=== PATIENT | female | born 1985 | race Caucasian/White ===

== ENCOUNTER 2017-08-08 10:54 | Day surgery (SDC) | payer OTHER ==
[2017-08-08] MEDS ORDERED: Propofol 10 mg/ml Inj (20 ML) ONE (14:13)
[2017-08-08] MEDS ORDERED: Midazolam 2 MG/2 ML VIAL ONE (14:14)
[2017-08-08] MEDS ORDERED: Bupivacaine HCl 0.25% PF (10 ml) Inj ONE (14:43)
[2017-08-08] MEDS ORDERED: ceFAZolin IV 1 gm in Dextrose 1 GM/50 ML BAG IVPB ONE (14:54)
[2017-08-08] MEDS ORDERED: Neostigmine Methylsulfate 3mg/3ml Syringe IV ONE (14:54)
[2017-08-08] MEDS ORDERED: Succinylcholine Chloride 20 mg/ml Syr (5 ml) IV ONE (14:55)
[2017-08-08] MEDS ORDERED: Rocuronium 10 mg/ml (5 ml) ONE (14:55)
[2017-08-08] MEDS ORDERED: HYDROmorphone 0.5 mg/0.5 ml ISec IVP PRN (15:03)
--- NOTE | 2017-08-08 15:11 | PCM.SURG1 ---
Surgeon's Initial Post Op Note - Surgeon's Notes Surgeon: michelle agustin md Gear Cutting Machine Operator: none Type of Anesthesia: General Endo, Local Pre-Operative Diagnosis: abnormal uterine bleeding. endometrial polyps. vulvar condylomas lessions. Fibroids uterus Operative Findings: multiple endometrial polyps. multiple condylomas on vulvar approx 10 lessions Post-Operative Diagnosis: abnormal uterine bleeding. endometrial polyps. vulvar condylomas lessions. Fibroids uterus Operation Performed: [place] hysteroscopic polypectomy. Excision of extensive vulvar condylomas / simple vulvectomy. hysteroscopy Specimen/Specimens Removed: endometrial polyps. vulvar condylomas Estimated Blood Loss: EBL {In ML}: 10 Blood Products Given: N/A Drains Used: No Drains Post-Op Condition: Good Date of Surgery/Procedure: 08/08/17 Time of Surgery/Procedure: 15:12
[2017-08-08] MEDS ORDERED: Sodium Chloride 0.9% 1,000 ML IV SCH (15:15)
--- NOTE | 2017-08-08 15:15 | PCM.OP ---
Operative Report - Operative Report Date of Surgery/Procedure: 08/08/17 Time of Surgery/Procedure: 15:12 Surgeon: michelle Paz md [employer] Kiln: none Anesthesia/Sedation: general with ET tube Pre-Operative Diagnosis: Abnormal uterine bleeding. endometrial polyps. Fibroids. Vulvar condylomas Post-Operative Diagnosis: Abnormal uterine bleeding. endometrial polyps. Fibroids. Vulvar condylomas Indication for Surgery: Abnormal uterine bleeding. worsening expending condylomas on vulvar multiple lessions noted approx 10 Operative Findings: multiple endometrial polpys. exntesive condylomas on vulva midline above clitoris Procedure/Operation Description: Myosure polypectomy hysterescopy. Simple vulvectomy / Excision of vulvar condylomas (extensive). . Detail operative report. This is a 31 year-old female with abnormal uterine bleeding, endometrial polyps as well as uterine fibroids as well as extensive vulvar condyloma lesions. Proper consent was obtained. Patient was taken to the operating room where general anesthesia was obtained without difficulty. She was prepped and draped appropriately for hysteroscopic removal of endometrial polyps and simple vulvectomy. Patient was placed in dorsal lithotomy position, legs were placed in adjustable Suraj stirrups, and careful attention was placed to avoid hyperflexion or hyperextension of the lower extremities. Schultz catheter was inserted under sterile condition. The cervix was grasped with Tenaculumcervix was dilated to allow a hysteroscope to be advanced into the endometrial cavity. Hysteroscope was inserted and multiple polypoid structures were noted near the fundus. The Myosure device was inserted and in a usual fashion the polyps were excised in a meticulous and careful way with excellent hemostasis. The polypoid tissue sent to pathology. At this time to hysteroscope was removed and endometrial distention was reduced. Fluid utilized was normal saline, fluid deficit was measured at 100 mL. Next, attention was then turned to the patient's vulva, midline approximately 1 cm above the clitoris collection of approximately 10 condyloma lesions were noted and marked. Local anesthetic solution of carotid percent Marcaine was utilized to infiltrate the skin underneath this lesions. Limited excision of this collection of condylomas along with the underlying vulva was completed and sent to pathology labeled appropriately Cautery was utilized to obtain hemostasis. Multiple interrupted sutures 2-0 and 3-0 Vicryl material in interrupted fashion was utilized to close distress defect with excellent hemostasis and excellent cosmesis. No tension noted on the sensation. Steri-Strips were applied to the incision. Patient tolerated the procedure well and was taken to recovery room in stable condition. Prior to incision. She received prophylactic antibiotics, prior to closure sponge lap and needle count correct 2. Estimated Blood Loss: 10 ml Blood Replaced: none Sponge/Instrument Count: correct Drains: none Complications: none Specimen: endometrial polyps. vulvar condylomas excision Discharge & Condition: discherge home when condition met
[2017-08-08] MEDS ORDERED: Oxycodone/Acetaminophen 5/325 mg Tab PO PRN (15:38)
[2017-08-08 15:55] VITALS: O2SAT 100
[2017-08-08] MEDS ORDERED: Lactated Ringer's 1,000 ML IV ONE (16:15)
[2017-08-08 17:50] VITALS: BP 104/58; PULSE 60; RESP 16; TEMP 97.4
== END 2017-08-08 17:55 | disposition home or self-care (01) ==
LOC: C.SDS 10:54
PROVIDERS: ATTEND Obstetrics & Gynecology
DX: N84.0 Polyp of corpus uteri (principal); E28.2 Polycystic ovarian syndrome; N93.9 Abnormal uterine and vaginal bleeding, unspecified; A63.0 Anogenital (venereal) warts
CPT/HCPCS: 11426; 12042; 36415; 58558; 86850; 86900; 88305; C2615; J0690; J1170; J1885; J2001; J2250; J2405; J2704; J2710; J3010; J7120